=== PATIENT | female | born 1960 | race Caucasian/White ===

== ENCOUNTER 2017-05-03 01:03 | Emergency (ER) | payer OTHER ==
[2017-05-03 01:07] VITALS: BP 164/102; PULSE 71; RESP 16; TEMP 98.9; O2SAT 98
[2017-05-03] MEDS ORDERED: LORazepam 2 MG/ML VIAL IV PUSH ONE (03:45)
[2017-05-03] MEDS ORDERED: methylPREDNISolone SOD SUCC 125 MG/2 ML VIAL IV PUSH ONE (03:45)
[2017-05-03] MEDS ORDERED: INTE1KIT2 IM (04:05)
[2017-05-03] MEDS ORDERED: OMEP20TA93 PO (04:05)
[2017-05-03] MEDS ORDERED: LISI-515 PO (04:05)
[2017-05-03] MEDS ORDERED: HYDR12.57 PO (04:05)
[2017-05-03] MEDS ORDERED: METO50TA PO (04:05)
[2017-05-03] MEDS ORDERED: PROZ20CA11 PO (04:05)
[2017-05-03 04:10] LABS: BASOPHIL % 0.3 % (0.0-2.0); EOSINOPHIL # 0.1 TH/MM3 (0-0.4); EOSINOPHIL % 0.8 % (0.0-4.0); HEMOGLOBIN 12.7 GM/DL (11.6-15.3); LYMPH % 13.7 % (9.0-44.0); LYMPHOCYTE # 1.7 TH/MM3 (1.0-4.8); MEAN CELL VOLUME 91.5 FL (80.0-100.0); MEAN CORPUSCULAR HEMOGLOBIN 30.7 PG (27.0-34.0); MEAN CORPUSCULAR HGB CONC 33.5 % (32.0-36.0); MEAN PLATELET VOLUME 8.1 FL (7.0-11.0); MONO % 4.8 % (0.0-8.0); MONOCYTE # 0.6 TH/MM3 (0-0.9); NEUT % 80.4 % (16.0-70.0); PLATELET COUNT 272 TH/MM3 (150-450); RED BLOOD COUNT 4.15 MIL/MM3 (4.00-5.30); RED CELL DISTRIBUTION WIDTH 12.7 % (11.6-17.2); WHITE BLOOD COUNT 12.4 TH/MM3 (4.0-11.0)
[2017-05-03 04:34] LABS: ALBUMIN 4.1 GM/DL (3.4-5.0); ALT (GPT) 21 U/L (10-53); AST (GOT) 15 U/L (15-37); BLOOD UREA NITROGEN 19 MG/DL (7-18); CALCIUM 9.1 MG/DL (8.5-10.1); CHLORIDE 103 MEQ/L (98-107); GLOMERULAR FILTRATION RATE 65 ML/MIN (>89); GLUCOSE,RANDOM 138 MG/DL (74-106); SODIUM (NA) 138 MEQ/L (136-145)
[2017-05-03 04:36] LABS: ALKALINE PHOSPHATASE 60 U/L (45-117); TOTAL BILIRUBIN ADULT 0.4 MG/DL (0.2-1.0); TOTAL PROTEIN 7.4 GM/DL (6.4-8.2)
[2017-05-03] MEDS ORDERED: ALPR.5 PO (05:39)
[2017-05-03] MEDS ORDERED: MEDR4PAK PO (05:39)
--- NOTE | 2017-05-03 05:39 | PD ---
HPI . Numbness/tingling Chief Complaint: Numbness/Tingling Time Seen by Provider: 03:31 Travel History International Travel<30 days: No Contact w/Intl Traveler<30days: No Traveled to known affect area: No History of Present Illness HPI 56-year-old female history of MS, and anxiety, was lost to follow-up secondary to lack of insurance, recently began seen family medicine, was prescribed Prozac 2 days ago for anxiety, notes significant worsening of her MS symptoms as well as her anxiety. Patient notes shooting electric shocks emanating from her chest and her head and down her arms. Patient notes prior psychotic behavior with steroid treatment 24 years ago when she was first diagnosed with MS. Patient has not been on medications for MS for over a year and was reinstituted at end of February. Patient notes gradual decline in her disease process, with intermittent double vision blurred vision, and ataxia PFSH Past Medical History Narrative Medical Past medical history reviewed Anxiety: Yes Diminished Hearing: No Hypertension: Yes Medical other: Yes (MS) ?: Not Past Surgical History Hysterectomy: Yes (PARTIAL) Tonsillectomy: Yes Other Surgery: Yes (NOSE SX X2) Social History Alcohol Use: No Tobacco Use: No Substance Use: No Allergies-Medications (Allergen,Severity, Reaction): Coded Allergies: No Known Allergies (Unverified , 05/03/17) Reported Meds & Prescriptions Reported Meds & Active Scripts Active Reported Avonex Inj Kit (Interferon Beta 1a) 30 Mcg (1 Ml) Kit 30 Mcg IM Q7D Prozac (Fluoxetine HCl) 20 Mg Cap 20 Mg PO DAILY Metoprolol Tartrate 50 Mg Tab 50 Mg PO BID Hydrochlorothiazide 12.5 Mg Cap 12.5 Mg PO DAILY Lisinopril 20 Mg Tab 20 Mg PO BID Omeprazole 20 Mg Tab 20 Mg PO HS Narrative Medication Allergies and medications reviewed Review of Systems Except as stated in HPI: all other systems reviewed are Neg General / Constitutional: No: Fever Eyes: No: Visual changes HENT: No: Headaches Cardiovascular: No: Chest Pain or Discomfort Respiratory: No: Shortness of Breath Gastrointestinal: No: Abdominal Pain Genitourinary: No: Dysuria Musculoskeletal: No: Pain Skin: No Rash Neurologic: Positive: Ataxia, Paresthesia, Sensory Disturbance, No: Weakness Psychiatric: Positive: Anxiety, No: Depression Endocrine: No: Polydipsia Hematologic/Lymphatic: No: Easy Bruising Physical Exam Narrative GENERAL: Awake and alert oriented 3 no acute distress. Vital signs afebrile normal stable SKIN: Warm and dry. Color is normal no diaphoresis cyanosis or pallor HEAD: Atraumatic. Normocephalic. EYES: Pupils equal and round. No scleral icterus. No injection or drainage. ENT: No nasal bleeding or discharge. Mucous membranes pink and moist. NECK: Trachea midline. No JVD. Supple full range of motion CARDIOVASCULAR: Regular rate and rhythm. S1-S2 no murmurs or gallops RESPIRATORY: No accessory muscle use. Clear to auscultation. Breath sounds equal bilaterally. GASTROINTESTINAL: Abdomen soft, non-tender, nondistended. Hepatic and splenic margins not palpable. MUSCULOSKELETAL: Extremities without clubbing, cyanosis, or edema. No obvious deformities. NEUROLOGICAL: Awake and alert. No obvious cranial nerve deficits. Motor grossly within normal limits. Five out of 5 muscle strength in the arms and legs. Normal speech. Reflexes normal. Patient has slight ataxia PSYCHIATRIC: Slightly pressured speech but otherwise judgment and affect normal Data Data Last Documented VS Vital Signs Date Time Temp Pulse Resp B/P (MAP) Pulse Ox O2 Delivery O2 Flow Rate FiO2 05/03/17 01:07 98.9 71 16 164/102 (122) 98 Orders Orders Iv Access Insert/Monitor (05/03/17 03:44) Complete Blood Count With Diff (05/03/17 03:44) Comprehensive Metabolic Panel (05/03/17 03:44) Westergren Sedimentation Rate (05/03/17 03:44) Methylprednisolone So Succ Inj (Solumedr (05/03/17 03:45) Lorazepam Inj (Ativan Inj) (05/03/17 03:45) Labs Laboratory Tests Test 05/03/17 04:00 White Blood Count 12.4 TH/MM3 Red Blood Count 4.15 MIL/MM3 Hemoglobin 12.7 GM/DL Hematocrit 38.0 % Mean Corpuscular Volume 91.5 FL Mean Corpuscular Hemoglobin 30.7 PG Mean Corpuscular Hemoglobin Concent 33.5 % Red Cell Distribution Width 12.7 % Platelet Count 272 TH/MM3 Mean Platelet Volume 8.1 FL Neutrophils (%) (Auto) 80.4 % Lymphocytes (%) (Auto) 13.7 % Monocytes (%) (Auto) 4.8 % Eosinophils (%) (Auto) 0.8 % Basophils (%) (Auto) 0.3 % Neutrophils # (Auto) 10.0 TH/MM3 Lymphocytes # (Auto) 1.7 TH/MM3 Monocytes # (Auto) 0.6 TH/MM3 Eosinophils # (Auto) 0.1 TH/MM3 Basophils # (Auto) 0.0 TH/MM3 CBC Comment DIFF FINAL Differential Comment Erythrocyte Sedimentation Rate 6 mm/hr Blood Urea Nitrogen 19 MG/DL Creatinine 0.90 MG/DL Random Glucose 138 MG/DL Total Protein 7.4 GM/DL Albumin 4.1 GM/DL Calcium Level 9.1 MG/DL Alkaline Phosphatase 60 U/L Aspartate Amino Transf (AST/SGOT) 15 U/L Alanine Aminotransferase (ALT/SGPT) 21 U/L Total Bilirubin 0.4 MG/DL Sodium Level 138 MEQ/L Potassium Level 3.7 MEQ/L Chloride Level 103 MEQ/L Carbon Dioxide Level 28.0 MEQ/L Anion Gap 7 MEQ/L Estimat Glomerular Filtration Rate 65 ML/MIN [facility] Medical Decision Making Medical Screen Exam Complete: Yes Emergency Medical Condition: Yes Medical Record Reviewed: Yes Differential Diagnosis MS exacerbation, anxiety disorder, mood disorder, bipolar Narrative Course Patient significantly improved with steroids, anxiolytics. No psychotic behavior noted. Laboratory examinations reviewed, no significant abnormalities. Sedimentation rate 6 Diagnosis Primary Impression: Anxiety Additional Impression: Exacerbation of multiple sclerosis Patient Instructions: Anxiety (ED), General Instructions, Multiple Sclerosis ( DC) Additional Instructions: Medrol Dosepak as prescribed. Xanax 0.5 mg every 12 hours as needed for anxiety. Follow-up with your doctor. Return for worsening. Discontinue Prozac Scripts Alprazolam (Xanax) 0.5 Mg Tab 0.5 MG PO Q8H Y for ANXIETY, #15 TAB 0 Refills Prov: Niko Jain MD 05/03/17 Methylprednisolone Dosepak (Medrol Dosepak) 4 Mg Dspk 4 MG PO DIRECTED, #1 DSPK 0 Refills Per Pharmacist direction Prov: Niko Jain MD 05/03/17 Disposition: 01 DISCHARGE HOME Condition: Stable Niko Jain MD May 03, 2017 05:39
[2017-05-03 05:53] VITALS: BP 145/89; PULSE 71; RESP 18; O2SAT 96
== END 2017-05-03 05:57 | disposition home or self-care (01) ==
LOC: NEPE 01:03
DX: F41.9 Anxiety disorder, unspecified (principal); G35 Multiple sclerosis; I10 Essential (primary) hypertension; Z79.899 Other long term (current) drug therapy
CPT/HCPCS: 80053; 85025; 85652; 96374; 96375; 99284; J2060; J2930

== ENCOUNTER 2017-07-07 07:15 | Observation (INO) | payer OTHER ==
[~2017-07-07] VITALS: Ht 177.8 cm; Wt 90.0 kg
[2017-07-07] VITALS (12 sets, daily range): BP systolic 137–197; BP diastolic 89–121; PULSE 58–70; RESP 16–24; TEMP 97.8–98.1; O2SAT 98–100
[~2017-07-07 07:15] MED LIST: ALPR.5 PO; HYDR12.57 PO; INTE1KIT2 IM; LISI-515 PO; MEDR4PAK PO; METO50TA PO; OMEP20TA93 PO; PROZ20CA11 PO
[2017-07-07] MEDS ORDERED: ALPR.5 PO (07:32)
[2017-07-07] MEDS ORDERED: SODIUM CHLORIDE 0.9% FLUSH 10 ML FLUSH IVF PRN (08:00)
--- NOTE | 2017-07-07 08:10 | PD ---
HPI Chief Complaint: Chest Pain Time Seen by Provider: 08:04 Travel History International Travel<30 days: No Contact w/Intl Traveler<30days: No Traveled to known affect area: No History of Present Illness HPI 56-year-old female patient with history of MS, hypertension, borderline diabetes , here because she started having a left-sided 5 out of 10 chest pain with radiation down her arm last night. She denies any nausea, shortness of breath, or other symptoms. She states that she has also been having headaches over the last few days. She states that her blood pressures have been poorly controlled , does not think that her primary care doctors are doing much about it. She denies other issues. She states that she had been here a few months ago for chest pains as well and had a stress test done which was essentially unremarkable. Modifying Factors: None Associated Signs & Symptoms: Chest discomfort Risk Factors: Hypertension PFSH Past Medical History Anxiety: Yes Cardiovascular Problems: Yes Diminished Hearing: No Hypertension: Yes Psychiatric: Yes Tetanus Vaccination: > 5 Years Influenza Vaccination: No ?: Not : 2 Para: 2 Past Surgical History Hysterectomy: Yes (PARTIAL) Tonsillectomy: Yes Other Surgery: Yes (NOSE SX X2) Social History Alcohol Use: No Tobacco Use: No Substance Use: No Allergies-Medications (Allergen,Severity, Reaction): Coded Allergies: No Known Allergies (Unverified , 07/07/17) Reported Meds & Prescriptions Reported Meds & Active Scripts Active Reported Xanax (Alprazolam) 0.5 Mg Tab 0.5 Mg PO DAILY PRN Avonex Inj Kit (Interferon Beta 1a) 30 Mcg (1 Ml) Kit 30 Mcg IM Q7D Prozac (Fluoxetine HCl) 20 Mg Cap 20 Mg PO DAILY Metoprolol Tartrate 50 Mg Tab 50 Mg PO BID Hydrochlorothiazide 12.5 Mg Cap 12.5 Mg PO DAILY Lisinopril 20 Mg Tab 20 Mg PO BID Omeprazole 20 Mg Tab 20 Mg PO HS Review of Systems Except as stated in HPI: all other systems reviewed are Neg Physical Exam Narrative GENERAL: Well-developed middle-aged female patient currently in mild distress. Awake and oriented 3. SKIN: Focused skin assessment warm/dry. HEAD: Atraumatic. Normocephalic. EYES: Pupils equal and round. No scleral icterus. No injection or drainage. ENT: No nasal bleeding or discharge. Mucous membranes pink and moist. NECK: Trachea midline. No JVD. Supple. CARDIOVASCULAR: Regular rate and rhythm. No murmur appreciated. Pulses are present and equal bilaterally. RESPIRATORY: No accessory muscle use. Clear to auscultation. Breath sounds equal bilaterally. GASTROINTESTINAL: Abdomen soft, non-tender, nondistended. Hepatic and splenic margins not palpable. MUSCULOSKELETAL: No obvious deformities. No clubbing. No cyanosis. No edema. NEUROLOGICAL: Awake and alert. No obvious cranial nerve deficits. Motor grossly within normal limits. Normal speech. PSYCHIATRIC: Appropriate mood and affect; insight and judgment normal. Data Data Last Documented VS Vital Signs Date Time Temp Pulse Resp B/P (MAP) Pulse Ox O2 Delivery O2 Flow Rate FiO2 07/07/17 09:24 97.8 59 17 154/94 (114) 99 Room Air Orders Orders Electrocardiogram (07/07/17 07:52) Ckmb (Isoenzyme) Profile (07/07/17 07:52) Complete Blood Count With Diff (07/07/17 07:52) Comprehensive Metabolic Panel (07/07/17 07:52) Magnesium (Mg) (07/07/17 07:52) Prothrombin Time / Inr (Pt) (07/07/17 07:52) Act Partial Throm Time (Ptt) (07/07/17 07:52) Troponin I (07/07/17 07:52) Lipase (07/07/17 07:52) Ecg Monitoring (07/07/17 07:52) Bilateral Bp Monitoring (07/07/17 07:52) Iv Access Insert/Monitor (07/07/17 07:52) Oximetry (07/07/17 07:52) Oxygen Administration (07/07/17 07:52) Sodium Chloride 0.9% Flush (Ns Flush) (07/07/17 08:00) Chest, Pa & Lat (07/07/17 07:52) Metoprolol Tartrate (Lopressor) (07/07/17 08:15) Lisinopril (Prinivil) (07/07/17 08:15) Hydrochlorothiazide (Microzide) (07/07/17 08:15) Aspirin (Aspirin) (07/07/17 08:15) CKMB (07/07/17 07:15) CKMB% (07/07/17 07:15) Admit Order (Ed Use Only) (07/07/17 09:35) Labs Laboratory Tests Test 07/07/17 07:15 White Blood Count 3.8 TH/MM3 Red Blood Count 4.07 MIL/MM3 Hemoglobin 13.0 GM/DL Hematocrit 37.1 % Mean Corpuscular Volume 91.1 FL Mean Corpuscular Hemoglobin 31.9 PG Mean Corpuscular Hemoglobin Concent 35.0 % Red Cell Distribution Width 13.6 % Platelet Count 260 TH/MM3 Mean Platelet Volume 8.5 FL Neutrophils (%) (Auto) 43.6 % Lymphocytes (%) (Auto) 42.2 % Monocytes (%) (Auto) 12.2 % Eosinophils (%) (Auto) 1.1 % Basophils (%) (Auto) 0.9 % Neutrophils # (Auto) 1.6 TH/MM3 Lymphocytes # (Auto) 1.6 TH/MM3 Monocytes # (Auto) 0.5 TH/MM3 Eosinophils # (Auto) 0.0 TH/MM3 Basophils # (Auto) 0.0 TH/MM3 CBC Comment DIFF FINAL Differential Comment Prothrombin Time 10.4 SEC Prothromb Time International Ratio 1.0 RATIO Activated Partial Thromboplast Time 29.0 SEC Blood Urea Nitrogen 11 MG/DL Creatinine 0.92 MG/DL Random Glucose 117 MG/DL Total Protein 7.6 GM/DL Albumin 4.1 GM/DL Calcium Level 9.0 MG/DL Magnesium Level 2.0 MG/DL Alkaline Phosphatase 56 U/L Aspartate Amino Transf (AST/SGOT) 19 U/L Alanine Aminotransferase (ALT/SGPT) 24 U/L Total Bilirubin 0.5 MG/DL Sodium Level 139 MEQ/L Potassium Level 3.7 MEQ/L Chloride Level 103 MEQ/L Carbon Dioxide Level 28.5 MEQ/L Anion Gap 8 MEQ/L Estimat Glomerular Filtration Rate 64 ML/MIN Total Creatine Kinase 125 U/L Creatine Kinase MB 1.4 NG/ML Troponin I LESS THAN 0.02 NG/ML Lipase 192 U/L MDM Medical Decision Making Medical Screen Exam Complete: Yes Emergency Medical Condition: Yes Medical Record Reviewed: Yes Interpretation(s) EKG shows normal sinus rhythm at a rate of 62 bpm. No signs of acute ST elevations or depressions. Laboratory Tests Test 07/07/17 07:15 White Blood Count 3.8 TH/MM3 (4.0-11.0) Monocytes (%) (Auto) 12.2 % (0.0-8.0) Neutrophils # (Auto) 1.6 TH/MM3 (1.8-7.7) Random Glucose 117 MG/DL (74-106) Estimat Glomerular Filtration Rate 64 ML/MIN (>89) Troponin I LESS THAN 0.02 NG/ML Last 24 hours Impressions Chest X-Ray 07/07/17 0752 Signed Impressions: Service Date/Time: Friday, July 07, 2017 08:16 - CONCLUSION: 1. No acute cardiopulmonary disease. Enrique Prescott MD Differential Diagnosis Chest pains: Hypertensive urgency versus ACS versus dysrhythmias versus anxiety attack Narrative Course EKG and lab work was fairly unremarkable. Patient's blood pressure was initially fairly elevated and she was given her morning medications with improvement of blood pressure. However, the chest discomfort did not go away. At this point, my plan would be to admit her to chest pain center for further evaluation of chest pains. Diagnosis Primary Impression: Chest pain Admitting Information Admitting Physician Requests: Admit Rachel Kennedy MD Jul 07, 2017 08:10
[2017-07-07 08:12] LABS: AUTOMATED NEUTROPHIL # 1.6 TH/MM3 (1.8-7.7); BASOPHIL % 0.9 % (0.0-2.0); EOSINOPHIL % 1.1 % (0.0-4.0); HEMATOCRIT 37.1 % (35.0-46.0); LYMPH % 42.2 % (9.0-44.0); LYMPHOCYTE # 1.6 TH/MM3 (1.0-4.8); MEAN CELL VOLUME 91.1 FL (80.0-100.0); MEAN CORPUSCULAR HEMOGLOBIN 31.9 PG (27.0-34.0); MEAN PLATELET VOLUME 8.5 FL (7.0-11.0); MONO % 12.2 % (0.0-8.0); MONOCYTE # 0.5 TH/MM3 (0-0.9); NEUT % 43.6 % (16.0-70.0); PLATELET COUNT 260 TH/MM3 (150-450); RED BLOOD COUNT 4.07 MIL/MM3 (4.00-5.30); RED CELL DISTRIBUTION WIDTH 13.6 % (11.6-17.2); WHITE BLOOD COUNT 3.8 TH/MM3 (4.0-11.0)
[2017-07-07] MEDS ORDERED: METOPROLOL TARTRATE 50 MG TAB PO ONE (08:15)
[2017-07-07] MEDS ORDERED: ASPIRIN 325 MG TAB PO ONE (08:15)
[2017-07-07] MEDS ORDERED: HYDROCHLOROTHIAZIDE 12.5 MG CAP PO ONE (08:15)
[2017-07-07] MEDS ORDERED: LISINOPRIL 20 MG TAB PO ONE (08:15)
[2017-07-07 08:21] LABS: PROTHROMBIN TIME - PATIENT 10.4 SEC (9.8-11.6)
--- NOTE | 2017-07-07 08:27 | RADRPT ---
EXAM DATE/TIME: 07/07/2017 08:16 [place] COMPARISON: No previous studies available for comparison. INDICATIONS : Patient states chest pains. MEDICAL HISTORY : Hypertension. MS SURGICAL HISTORY : None. ENCOUNTER: Initial ACUITY: 1 day PAIN SCORE: 8/10 LOCATION: Bilateral chest FINDINGS: PA and lateral views of the chest demonstrate the lungs to be symmetrically aerated without evidence of mass, infiltrate or effusion. The cardiomediastinal contours are unremarkable. Osseous structure s are intact. CONCLUSION: 1. No acute cardiopulmonary disease. Enrique Prescott MD on July 07, 2017 at 8:21 Board Certified Radiologist. This report was verified electronically.
[2017-07-07 08:30] LABS: ALBUMIN 4.1 GM/DL (3.4-5.0); ALT (GPT) 24 U/L (10-53); AST (GOT) 19 U/L (15-37); BICARBONATE 28.5 MEQ/L (21.0-32.0); BLOOD UREA NITROGEN 11 MG/DL (7-18); CHLORIDE 103 MEQ/L (98-107); CREATININE 0.92 MG/DL (0.50-1.00); GLOMERULAR FILTRATION RATE 64 ML/MIN (>89); GLUCOSE,RANDOM 117 MG/DL (74-106); SODIUM (NA) 139 MEQ/L (136-145)
[2017-07-07 08:34] LABS: ALKALINE PHOSPHATASE 56 U/L (45-117); TOTAL BILIRUBIN ADULT 0.5 MG/DL (0.2-1.0); TOTAL PROTEIN 7.6 GM/DL (6.4-8.2); TROPONIN I LESS THAN 0.02 NG/ML (0.02-0.05)
[2017-07-07] MEDS ORDERED: NITROGLYCERIN 0.4 MG SL 25 TABS/BTL SL PRN (10:00)
[2017-07-07] MEDS ORDERED: ACETAMINOPHEN 500 MG CPLT PO PRN (10:00)
[2017-07-07] MEDS ORDERED: ONDANSETRON HCL 4 MG/2 ML VIAL IV PUSH PRN (10:00)
--- NOTE | 2017-07-07 11:34 | HHI.HP ---
HPI Primary Care Physician [facility] Chief Complaint Chest pain History of Present Illness 56-year-old female with history of MS, hypertension, and GERD presents to emergency room for further evaluation chest pain, abdominal, and back pain. Onset between 6:30-7pm. Location left anterior chest. Characterized as pressure. Radiation to left arm and across chest. Duration waxed and waned in intensity, never fully gone away. Associated symptoms included nausea. Denied dyspnea, vomiting, or diaphoresis. Hurt to take a deep breath. When she laid down she experienced palpitations. [place] better standing up. Was unable to sleep throughout the evening due to discomfort. Currently experiencing substernal chest "soreness" without radiation or associated symptoms. Also reporting most of evening experienced bilateral lower back pain and generalized abdominal discomfort. Since she was up most of evening, she took her blood pressure multiple times reporting blood pressures 200/100s most of evening. Review of Systems General: No fatigue,weakness, fever, chills, recent illness, or change in appetite. Has been in her general state of health, reporting over the last year experiencing more frequent MS symptoms. HEENT: No [place], no vision changes, no nasal congestion or drainage, no dysphasia CV: And he needs to have chest pain as stated above. Palpitations have resolved. RESP: No SOB, cough, wheeze, or recent URI GI: Nausea resolved. No vomiting, bowel changes, diarrhea, constipation, pain, distention, melena, or blood in the stool. : No dysuria, urgency, frequency, or hematuria. Reports frequent UTIs having 3 -4 UTI since March. Recently completed urinalysis on 07/01/17 and told today by her PCP she currently has a UTI. EXT: No lower leg edema, no paraesthesias MS: Frequent episodes of generalized, full body shooting muscle spasms. Recently established with Dr. Fuentes, seen him April. At that time, she was not experiencing any muscle discomforts. No discomfort or change in ROM. NEURO: No difficulty with balance, LOC, motor/sensory deficits PSYCH: No anxiety, depression, or situational stress. SKIN: No rashes, no concerning lesions Past Family Social History Allergies: Coded Allergies: No Known Allergies (Unverified , 07/07/17) Past Medical History MS, hypertension, GERD Past Surgical History Partial hysterectomy Reported Medications Reported Meds & Active Scripts Active Reported Xanax (Alprazolam) 0.5 Mg Tab 0.5 Mg PO DAILY PRN Avonex Inj Kit (Interferon Beta 1a) 30 Mcg (1 Ml) Kit 30 Mcg IM Q7D Metoprolol Tartrate 50 Mg Tab 50 Mg PO BID Hydrochlorothiazide 12.5 Mg Cap 12.5 Mg PO DAILY Lisinopril 20 Mg Tab 20 Mg PO BID Omeprazole 20 Mg Tab 20 Mg PO HS Active Ordered Medications Current Medications Medications (Trade) Dose Ordered Sig/Chan Route Start Time Stop Time Status Last Admin (NS Flush) 2 ml UNSCH PRN IVF 07/07/17 08:00 07/07/17 08:00 (NS Flush) 2 ml BID IV FLUSH 07/07/17 21:00 (Tylenol) 500 mg Q4H PRN PO 07/07/17 10:00 (Zofran Inj) 4 mg Q6H PRN IV PUSH 07/07/17 10:00 (Nitrostat Sl) 0.4 mg Q5M PRN SL 07/07/17 10:00 (Aspirin) 325 mg DAILY PO 07/08/17 09:00 Family History Noncontributory for early onset cardiovascular disease. Father CABG age 60. Social History Known hypertension. Recently told she is a borderline diabetic. No known hypertension or coronary artery disease. Lifelong nonsmoker. Denies any alcohol or illegal drug use. . Past cardiac testing October 14, 2016 Nuclear exercise stress testing unremarkable. (please note- patient has 2 medical records. One record under Arianne Mcgee and additional record Arianne Mcgee) Physical Exam Vital Signs Vital Signs Date Time Temp Pulse Resp B/P (MAP) Pulse Ox O2 Delivery O2 Flow Rate FiO2 07/07/17 11:20 97.9 58 16 159/90 (113) 100 Room Air 07/07/17 10:23 97.9 60 16 143/96 (112) 99 Room Air 07/07/17 09:24 97.8 59 17 154/94 (114) 99 Room Air 07/07/17 08:34 97.8 67 16 179/96 (123) 100 Room Air 07/07/17 07:55 100 Room Air 07/07/17 07:55 68 17 100 Room Air 07/07/17 07:55 68 17 195/101 (132) 100 Room Air 197/121 (146) 07/07/17 07:55 67 17 99 Room Air 07/07/17 07:21 98.1 70 17 196/111 (139 99 Physical Exam GENERAL: Alert WN, WD, NAD, pleasant, female HEAD: NC, AT EYES: Sclera clear, conjunctiva without injection, pupils equal and round ENT: Mucous membranes pink and moist CV: RRR, without murmur, rub, gallop, no JVD, S1-S2 no S3-S4. Chest wall nontender with palpation. RESP: Clear lungs throughout bilateral, no crackles, wheeze, rhonchi, symmetrical chest rise, nonlabored, able to speak in full sentences ABD: Soft, NT, ND, no masses, positive bowel tones BACK: No CVAT, no scoliosis EXT: Pulses +24, no dependent edema MS: Normal tone 4 extremities, nontender, no obvious deformities, full range of motion NEURO: CN II through CN XII grossly intact, motor strength 5/5, gait WNL PSYCH: A+O 3, pleasant affect, appropriate speech, mood, insight and judgment SKIN: Normal turgor, normal texture, no lesions, no rashes, brisk cap refill, even hair distribution Laboratory Laboratory Tests Test 07/07/17 07:15 07/07/17 11:02 White Blood Count 3.8 Red Blood Count 4.07 Hemoglobin 13.0 Hematocrit 37.1 Mean Corpuscular Volume 91.1 Mean Corpuscular Hemoglobin 31.9 Mean Corpuscular Hemoglobin Concent 35.0 Red Cell Distribution Width 13.6 Platelet Count 260 Mean Platelet Volume 8.5 Neutrophils (%) (Auto) 43.6 Lymphocytes (%) (Auto) 42.2 Monocytes (%) (Auto) 12.2 Eosinophils (%) (Auto) 1.1 Basophils (%) (Auto) 0.9 Neutrophils # (Auto) 1.6 Lymphocytes # (Auto) 1.6 Monocytes # (Auto) 0.5 Eosinophils # (Auto) 0.0 Basophils # (Auto) 0.0 CBC Comment DIFF FINAL Differential Comment Prothrombin Time 10.4 Prothromb Time International Ratio 1.0 Activated Partial Thromboplast Time 29.0 Blood Urea Nitrogen 11 Creatinine 0.92 Random Glucose 117 Total Protein 7.6 Albumin 4.1 Calcium Level 9.0 Magnesium Level 2.0 Alkaline Phosphatase 56 Aspartate Amino Transf (AST/SGOT) 19 Alanine Aminotransferase (ALT/SGPT) 24 Total Bilirubin 0.5 Sodium Level 139 Potassium Level 3.7 Chloride Level 103 Carbon Dioxide Level 28.5 Anion Gap 8 Estimat Glomerular Filtration Rate 64 Total Creatine Kinase 125 Creatine Kinase MB 1.4 Troponin I LESS THAN 0.02 Lipase 192 Result Diagram: 07/07/17 0715 07/07/17 0715 Imaging Last 48 hours Impressions Chest X-Ray 07/07/17 0752 Signed Impressions: Service Date/Time: Friday, July 07, 2017 08:16 - CONCLUSION: 1. No acute cardiopulmonary disease. Enrique Prescott MD Course EKG Normal sinus rhythm, no ST or T-segment changes Caprini VTE Risk Assessment Caprini VTE Risk Assessment: No/Low Risk (score <= 1) Caprini Risk Assessment Model Point Value = 1 Point Value = 2 Point Value = 3 Point Value = 5 Age 41-60 Minor surgery BMI > 25 kg/m2 Swollen legs Varicose veins or History of unexplained or recurrent spontaneous Oral contraceptives or hormone replacement Sepsis (< 1 month) Serious lung disease, including pneumonia (< 1 month) Abnormal pulmonary function Acute myocardial infarction Congestive heart failure (< 1 month) History of inflammatory bowel disease Medical patient at bed rest Age 61-74 Arthroscopic surgery Major open surgery (> 45 min) Laparoscopic surgery (> 45 min) Malignancy Confined to bed (> 72 hours) Immobilizing plaster cast Central venous access Age >= 75 History of VTE Family history of VTE Factor V Leiden Prothrombin [id number] Lupus anticoagulant Anticardiolipin antibodies Elevated serum homocysteine Heparin-induced thrombocytopenia Other congenital or acquired thrombophilia Stroke (< 1 month) Elective arthroplasty Hip, pelvis, or leg fracture Acute spinal cord injury (< 1 month) Prophylaxis Regimen Total Risk Factor Score Risk Level Prophylaxis Regimen 0-1 Low Early ambulation 2 Moderate Order ONE of the following: *Sequential Compression Device (SCD) *Heparin 5000 units SQ BID 3-4 Higher Order ONE of the following medications: *Heparin 5000 units SQ TID *Enoxaparin/Lovenox 40 mg SQ daily (WT < 150 kg, CrCl > 30 mL/min) *Enoxaparin/Lovenox 30 mg SQ daily (WT < 150 kg, CrCl > 10-29 mL/min) *Enoxaparin/Lovenox 30 mg SQ BID (WT < 150 kg, CrCl > 30 mL/min) AND/OR *Sequential Compression Device (SCD) 5 or more Highest Order ONE of the following medications: *Heparin 5000 units SQ TID (Preferred with Epidurals) *Enoxaparin/Lovenox 40 mg SQ daily (WT < 150 kg, CrCl > 30 mL/min) *Enoxaparin/Lovenox 30 mg SQ daily (WT < 150 kg, CrCl > 10-29 mL/min) *Enoxaparin/Lovenox 30 mg SQ BID (WT < 150 kg, CrCl > 30 mL/min) AND *Sequential Compression Device (SCD) Assessment and Plan Assessment and Plan #1 Atypical chest pain-admitted to chest pain center. Rule out with 3 sets of EKGs, cardiac enzymes, monitoring, treatment. Will be seen and evaluated by Dr. John Shah. Further disposition of follow-up. #2 History of hypertension-continue to monitor, continue lisinopril, hydrochlorothiazide, and metoprolol. Discussed dietary modifications including DASH diet and keeping a blood pressure log for her primary care provider. #3 History of MS-continue Avonex #4 History of GERD-continue omeprazole, encouraged discussing with her primary care provider possibly referral for EGD due to long-standing history of GERD with continued symptoms. Verbalized understanding #5 Rule out UTI-obtain urine analysis, discussed following up with her primary care provider to determine cause for frequent urinary tract infections. 1630 Seen and evaluated by Dr. Shah, plans for nuclear treadmill in morning. If unremarkable, plans to discharge home with follow up with PCP and her neurologist. Christina Dale Jul 07, 2017 11:34
[2017-07-07 12:29] LABS: TROPONIN I LESS THAN 0.02 NG/ML (0.02-0.05)
[2017-07-07 14:34] LABS: TROPONIN I LESS THAN 0.02 NG/ML (0.02-0.05)
[2017-07-07 15:30] LABS: BILIRUBIN, URINE NEG (NEG); BLOOD, URINE NEG (NEG); GLUCOSE,URINE NEG (NEG); KETONE, URINE NEG (NEG); NITRITE,URINE NEG (NEG); SQUAMOUS EPITHELIAL CELL URINE 1 /hpf (0-5); URINE COLOR YELLOW (YELLW/STRAW); URINE LEUKOCYTE ESTERASE TRACE (NEG)
--- NOTE | 2017-07-07 17:10 | EKG ---
Date Performed: 07/07/2017 Time Performed: 13:50:06 PTAGE: 56 years EKG: SINUS BRADYCARDIA NON SPECIFIC ST SEGMENT CHANGES NO PREVIOUS TRACING DOCTOR: John Shah Interpretating Date/Time 07/07/2017 17:09:07
--- NOTE | 2017-07-07 17:11 | EKG ---
Date Performed: 07/07/2017 Time Performed: 10:56:56 PTAGE: 56 years EKG: SINUS BRADYCARDIA NON SPECIFIC ST CHANGES PREVIOUS TRACING : 07/07/2017 07.33 Since previous tracing, no significant change noted DOCTOR: John Shah Interpretating Date/Time 07/07/2017 17:10:03
[2017-07-07] MEDS ORDERED: METOPROLOL TARTRATE 50 MG TAB PO SCH (21:00)
[2017-07-07] MEDS ORDERED: PANTOPRAZOLE SOD 20 MG DELAYED RELEASE TAB PO SCH (21:00)
--- NOTE | 2017-07-07 21:14 | EKG ---
Date Performed: 07/07/2017 Time Performed: 07:33:37 PTAGE: 56 years EKG: Sinus rhythm NORMAL ECG NO PREVIOUS TRACING DOCTOR: Cat Muhammad Interpretating Date/Time 07/07/2017 21:13:32
[2017-07-07] MEDS: SODIUM CHLORIDE 0.9% FLUSH 10 ML FLUSH IV FLUSH SCH (23:24)
[2017-07-07] MEDS: LISINOPRIL 20 MG TAB PO SCH (23:24)
[2017-07-08] VITALS: PULSE 58
[2017-07-08 03:58] VITALS: PULSE 62
[2017-07-08 07:02] VITALS: PULSE 49
[2017-07-08 08:07] VITALS: BP 138/98; PULSE 67; RESP 16; TEMP 98.5; O2SAT 99
[2017-07-08] MEDS ORDERED: HYDROCHLOROTHIAZIDE 12.5 MG CAP PO SCH (09:00)
[2017-07-08] MEDS ORDERED: ASPIRIN 325 MG TAB PO SCH (09:00)
[2017-07-08] MEDS: LISINOPRIL 20 MG TAB PO SCH (09:24)
[2017-07-08] MEDS: SODIUM CHLORIDE 0.9% FLUSH 10 ML FLUSH IV FLUSH SCH (09:25)
--- NOTE | 2017-07-08 12:03 | RADRPT ---
EXAM DATE/TIME: 07/08/2017 10:10 [place] COMPARISON: No previous studies available for comparison. INDICATIONS : Anterior chest pain with nausea for one day. Angina DOSE: 25.6 mCi Tc99m Myoview at stress 8.5 mCi Tc99m Myoview at rest REST HEART RATE: 87 BPM TARGET HEART RATE: 141 BPM MAX HEART RATE: 142 BPM REST BLOOD PRESSURE: 138/98 mmHg MAX BLOOD PRESSURE: 148/88 mmHg EJECTION FRACTION: > 70% MEDICAL HISTORY : Hypertension. Gastroesophageal reflux disease. SURGICAL HISTORY : Hysterectomy. Tonsillectomy. ENCOUNTER: Initial ACUITY: 1 day PAIN SCALE: 5/10 LOCATION: Midsternal chest TECHNIQUE: The patient underwent upright treadmill exercise in the chest pain center. Continuous ECG tracing wa s monitored during stress. Gated SPECT imaging was performed after stress, and conventional SPECT im aging was performed at rest. The examination was performed on a SPECT/CT scanner, both attenuation-c orrected and non-corrected datasets were reviewed. FINDINGS: DISTRIBUTION: The maximum perfused segment at stress is in the anterior wall. PERFUSION STUDY: The pattern of perfusion at stress is within normal limits. GATED STUDY: There is intact wall motion and thickening without hypokinetic or dyskinetic segments. CONCLUSION: 1. Basically negative exam. No scintigraphic findings of infarct or ischemia. 2. Excellent wall motion throughout with an estimated ejection fraction of greater than 70% RISK CATEGORY: Low (<1% Annual Mortality Rate) Delbert Montes De Oca MD on July 08, 2017 at 12:00 Board Certified Radiologist. This report was verified electronically.
[2017-07-08 13:04] VITALS: BP 137/88; PULSE 83; RESP 14; TEMP 96.8; O2SAT 97
--- NOTE | 2017-07-08 13:05 | HHI.DCPOC ---
Discharge Care Plan Diagnosis: (1) Chest pain (2) Hypertension (3) GERD (gastroesophageal reflux disease) (4) Multiple sclerosis Goals to Promote Your Health * To prevent worsening of your condition and complications * To maintain your health at the optimal level Directions to Meet Your Goals Take your medications as prescribed Follow your dietary instruction Follow activity as directed Keep your appointments as scheduled Take your immunizations and boosters as scheduled If your symptoms worsen call your PCP, if no PCP go to Urgent Care Center or Emergency Room Smoking is Dangerous to Your Health. Avoid second hand smoke Call the 24-hour hour crisis hotline for domestic abuse at Augie Blankenship Jul 08, 2017 13:05
[2017-07-08] MEDS ORDERED: cloNIDine HCL 0.1 MG TAB PO PRN (13:15)
--- NOTE | 2017-07-08 18:53 | TR ---
Date Performed: 07/08/2017 Time Performed: 10:53:11 DOCTOR: Cat Muhammad DRUG LIST: CLINICAL HISTORY: CHEST PAIN REASON FOR TEST: REASON FOR ENDING: OBSERVATION: CONCLUSION: ASUNCION PROTOCOL NUC ETT. NO CP OR SOB.Maximum AU=420 Maximum YO=839/88 Total Exercise Time=9:01 COMMENTS: Suggests ischemia
== END 2017-07-08 17:17 | disposition home or self-care (01) ==
LOC: NEPE 07:15 → NEDA 09:37 → NEPGCP 12:39
PROVIDERS: ADMIT Internal Medicine Cardiovascular Disease; ATTEND Internal Medicine Cardiovascular Disease
DX: R07.89 Other chest pain (principal); R00.1 Bradycardia, unspecified; M54.5 Low back pain; R51 Headache; R00.2 Palpitations; R10.84 Generalized abdominal pain; I10 Essential (primary) hypertension; R73.03 Prediabetes; G35 Multiple sclerosis; K21.9 Gastro-esophageal reflux disease without esophagitis; F41.9 Anxiety disorder, unspecified; Z87.440 Personal history of urinary (tract) infections; Z79.899 Other long term (current) drug therapy
CPT/HCPCS: 71046; 78452; 80053; 81001; 82550; 82552; 83690; 83735; 84484; 85025; 85610; 85730; 93005; 93017; 99285; A9502; G0378